=== PATIENT | male | born 1950 | race Caucasian/White ===

== ENCOUNTER 2017-07-11 11:31 | Observation (INO) | payer MEDICARE, OTHER ==
[~2017-07-11] VITALS: Ht 188 cm; Wt 102.3 kg
[~2017-07-11 11:31] MED LIST: ASPIRIN325 MG PO; ASPIRIN81 MG PO; COZAAR100 MG PO; CYMBALTA60 MG PO; MELOXICAM7.5 MG PO; METOPROLOL TART25 MG PO; NITROGLYCERIN0.4 MG SL; PLAVIX75 MG PO; POTASSIUM99 M1 PO; SIMVASTATIN40 MG PO; occuvite
[2017-07-11] MEDS ORDERED: ASPIRIN 325 MG TAB EC PO STA (11:45)
[2017-07-11 12:03] LABS: BASOPHILS % 0.2 % (0.0-1.0); HEMATOCRIT 47.2 % (38.2-49.6); LYMPHOCYTES # (AUTO) 2.3 (1.0-3.2); LYMPHOCYTES % 13.3 % (18.0-39.1); MEAN CORPUSCULAR HEMOGLOBIN 32.2 pg (28-32); MEAN CORPUSCULAR HGB CONC 33.9 g/dL (31-35); MONOCYTES # (AUTO) 1.2 (0.2-0.8); MONOCYTES % 6.8 % (4.4-11.3); NEUTROPHILS # (AUTO) 13.6 (2.1-6.9); NEUTROPHILS % 78.9 % (38.7-80.0); PLATELET COUNT 256 x10e3/uL (140-360); RED BLOOD COUNT 4.97 x10e6/uL (4.3-5.7); RED CELL DISTRIBUTION WIDTH 12.3 % (11.7-14.4)
[2017-07-11 12:08] LABS: INR 1.05; PROTHROMBIN TIME 14.2 seconds (11.9-14.5)
[2017-07-11 12:09] LABS: PARTIAL THROMBOPLASTIN TIME 25.5 seconds (23.8-35.5)
[2017-07-11 12:16] LABS: ALANINE AMINOTRANSFERASE 23 IU/L (0-55); ALBUMIN 3.8 g/dL (3.5-5.0); ALBUMIN/GLOBULIN RATIO 1.1 (0.8-2.0); ALKALINE PHOSPHATASE 79 IU/L (40-150); BLOOD UREA NITROGEN 23 mg/dL (7-26); BUN/CREATININE RATIO 23 (6-25); CALCIUM 8.7 mg/dL (8.4-10.2); CARBON DIOXIDE 26 mmol/L (22-29); CHLORIDE 106 mmol/L (98-107); CREATINE KINASE 38 IU/L (30-200); CREATININE, SERUM 1.02 mg/dL (0.72-1.25); EST GLOMERULAR FILTRATION RATE > 60 ML/MIN (60-); GLUCOSE 81 mg/dL (74-118); SODIUM 139 mmol/L (136-145)
--- NOTE | 2017-07-11 13:26 | Diagnostic Imaging Report ---
PROCEDURE: A single AP view of the chest. COMPARISON: 05/03/16 INDICATIONS: CHEST PAIN FINDINGS: Lines/tubes: None. Lungs: The lungs are well inflated and clear. There is no evidence of pneumonia or pulmonary edema. Pleura: There is no pleural effusion or pneumothorax. Heart and mediastinum: The heart and the mediastinum are unremarkable. Bones: No acute bony abnormality. IMPRESSION: 1. No acute cardiopulmonary disease. Dictated by: Tao Dillard M.D. on 07/11/2017 at 13:35 Electronically approved by: Tao Dillard M.D. on 07/11/2017 at 13:35
[2017-07-11] MEDS ORDERED: ONDANSETRON HCL INJ 2 MG/ML VIAL IV PRN (14:30)
[2017-07-11] MEDS ORDERED: MORPHINE SULFATE 2 MG/ML SYR IV PRN (14:30)
[2017-07-11] MEDS: ENOXAPARIN SODIUM INJ 100 MG/ML SYR SC SCH ×2 (15:08→21:44)
[2017-07-11 15:33] VITALS: BP 184/83
[2017-07-11] MEDS ORDERED: ASPIRIN81 MG (15:39)
[2017-07-11] MEDS ORDERED: FUROSEMIDE40 MG PO (15:39)
[2017-07-11] MEDS ORDERED: SIMVASTATIN20 MG PO (15:39)
[2017-07-11 15:49] VITALS: BP 184/83
[2017-07-11] MEDS: LOSARTAN POTASSIUM 100 MG TAB PO SCH (18:13)
[2017-07-11] MEDS ORDERED: ASPIRIN 81 MG CHEW TAB PO ONE (18:15)
[2017-07-11 20:00] VITALS: BP 147/72
[2017-07-11 20:03] VITALS: BP 147/72
--- NOTE | 2017-07-11 20:03 | Consultation ---
DATE OF CONSULTATION: July 11, 2017 CLINICAL HISTORY: This is a 67-year-old white man known to me from previous evaluations, referred by Dr. Nick Degroot for evaluation of recurrent chest pains. In 2009 this patient had a stent implanted in the proximal left anterior descending coronary artery by Dr. Jorge Dominguez. He also has history of nonsustained ventricular tachycardia with negative electrophysiology testing in 2010. There is history of PAT managed conservatively. His left ventricular ejection fraction most recently was in the normal range around 50% to 55%. In April 2016, he had chest pains and underwent cardiac catheterization with only residual 40% to 50% stenosis. His LAD stent appears to be patent. He says he is physically active on his job, walking approximately 3 miles per day, but often not at a persistent prolonged pace. He denies any chest pains at work. 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 He took 2 nitroglycerin and pain eventually resolved in approximately 5 to 10 minutes. He was a little bit alarmed by the pain. The pain rated 6 on a scale of 10. Following the sharp pain, he had some dull chest pains. Decided to come to the emergency room where EKG failed to show acute changes. Cardiology consultation requested. PAST MEDICAL HISTORY: Remarkable for a period of low ejection fraction, which after diuresis appears to have improved. His ejection fraction one time was in the range of 35% to 40%. Past medical history is also remarkable for left upper lobe pulmonary nodule, hypertension, depression, osteoporosis, and hyperlipidemia. PAST SURGICAL HISTORY: Left knee surgery, kidney stone lithotripsy, left leg vein stripping, left knee replacement. FAMILY HISTORY: Father had myocardial infarction and at age 58. Mother had congestive heart failure and myocardial infarction, and is alive. PERSONAL/SOCIAL HISTORY: Denies smoking or drinking. ALLERGIES: NO KNOWN DRUG ALLERGIES. REVIEW OF SYSTEMS: Negative. PHYSICAL EXAMINATION: GENERAL: He is obese, alert, coherent, appears to be comfortable. CARDIAC: Jugular veins are not distended. S1 S2 were regular. There is no appreciable murmur. LUNGS: Are clear. ABDOMEN: Soft and bowel sounds are present. EXTREMITIES: Show no cyanosis, clubbing or edema. IMPRESSION 1. Atypical chest pains rated 6 on a scale of 10, lasted 5 to 10 minutes requiring 2 nitroglycerin. Initially described as sharp but following resolution of pain there was still a dull discomfort in the chest. EKG showed no acute changes. Consider progression of coronary artery disease. 2. History of coronary stenting in the left anterior descending coronary artery 2009 with subsequent cardiac catheterization 2015 showing 40% to 50% stenosis. 3. Hypertension. 4. Hyperlipidemia. 5. History of nonsustained ventricular tachycardia with negative electrophysiology testing in 2010. 6. History of paroxysmal atrial tachycardia. 7. Depression. 8. Osteoarthritis. 9. History of cardiomyopathy. Ejection fraction of 35% to 40%, but most recent echo evaluation put the ejection fraction in the range of 50% to 55%. The difference may have been due to usage of diuretics. RECOMMENDATION: Consider nuclear stress test. Thank you very much. Job#: [id number] GH cc:NICK DEGROOT MD
[2017-07-11 21:31] LABS: CREATINE KINASE MB 0.7 ng/mL (0.00-5.00)
[2017-07-11] MEDS: SIMVASTATIN 20 MG TAB PO SCH (21:44)
[2017-07-12] VITALS (7 sets, daily range): BP systolic 128–165; BP diastolic 67–89
[2017-07-12 06:43] LABS: BASOPHILS % 0.1 % (0.0-1.0); EOSINOPHILS % 0.1 % (0.0-6.0); HEMOGLOBIN 15.1 g/dL (14.0-18.0); LYMPHOCYTES # (AUTO) 3.3 (1.0-3.2); LYMPHOCYTES % 23.1 % (18.0-39.1); MEAN CORPUSCULAR HEMOGLOBIN 31.9 pg (28-32); MEAN CORPUSCULAR HGB CONC 33.6 g/dL (31-35); MEAN CORPUSCULAR VOLUME 94.9 fL (81-99); MONOCYTES # (AUTO) 1.2 (0.2-0.8); MONOCYTES % 8.3 % (4.4-11.3); NEUTROPHILS # (AUTO) 9.8 (2.1-6.9); NEUTROPHILS % 67.8 % (38.7-80.0); PLATELET COUNT 218 x10e3/uL (140-360); RED BLOOD COUNT 4.74 x10e6/uL (4.3-5.7); RED CELL DISTRIBUTION WIDTH 12.2 % (11.7-14.4)
[2017-07-12 07:09] LABS: CREATINE KINASE MB 0.8 ng/mL (0.00-5.00)
[2017-07-12] MEDS ORDERED: REGADENOSON 0.4 MG/5 ML SYR IV ONE (08:14)
[2017-07-12] MEDS ORDERED: FUROSEMIDE 40 MG TAB PO SCH (09:00)
[2017-07-12] MEDS ORDERED: ASPIRIN 325 MG TAB EC PO SCH (09:00)
[2017-07-12] MEDS ORDERED: ASPIRIN 81 MG CHEW TAB PO SCH (09:00)
[2017-07-12] MEDS: ENOXAPARIN SODIUM INJ 100 MG/ML SYR SC SCH (10:40)
[2017-07-12] MEDS: LOSARTAN POTASSIUM 100 MG TAB PO SCH (10:50)
[2017-07-12] MEDS: ASPIRIN 325 MG TAB PO SCH (10:50)
[2017-07-12] MEDS: FUROSEMIDE 20 MG TAB PO SCH (10:50)
[2017-07-12] MEDS ORDERED: COZAAR100 MG PO (16:48)
[2017-07-12] MEDS ORDERED: PROTONIX40 MG/ML PO (16:50)
[2017-07-12 18:05] LABS: CLARITY,URINE SL CLOUDY (CLEAR); COLOR,URINE YELLOW (YELLOW)
[2017-07-12 18:06] LABS: BILIRUBIN,URINE NEGATIVE (NEGATIVE); KETONES,URINE NEGATIVE (NEGATIVE); LEUKOCYTE ESTERASE ,URINE NEGATIVE (NEGATIVE); NITRITE,URINE NEGATIVE (NEGATIVE); PROTEIN,URINE DIPSTICK NEGATIVE (NEGATIVE); URINE UROBILINOGEN 0.2 mg/dL (0.2 - 1)
[2017-07-12] MEDS: SIMVASTATIN 20 MG TAB PO SCH (20:32)
[2017-07-13] VITALS (7 sets, daily range): BP systolic 116–144; BP diastolic 63–74
--- NOTE | 2017-07-13 08:53 | Cardiology Report ---
DATE OF STUDY: NUCLEAR STRESS TEST AGE: 67 Following exercise perfusion, images showed diminished count involving a large area of the inferior septum. The rest images showed essentially the same. CONCLUSIONS 1. Large mixed defect involving the inferior septum consistent with myocardial scar. 2. The ejection fraction with exercise is 45%. 3. No significant ST-segment depression. 4. No chest pains reported with exercise. 5. Normal bronchial response. 6. No significant arrhythmias with exercise. Job#: [id number] RI cc:MELANI DEGROOT MD
[2017-07-13] MEDS: ASPIRIN 325 MG TAB PO SCH (09:30)
[2017-07-13] MEDS: PANTOPRAZOLE SOD 40 MG TABEC PO SCH (09:30)
[2017-07-13] MEDS: SODIUM CHLORIDE 0.9% 1000ML 1,000 ML IV SCH (09:30)
[2017-07-13] MEDS: LOSARTAN POTASSIUM 100 MG TAB PO SCH (09:31)
[2017-07-13] MEDS: FUROSEMIDE 20 MG TAB PO SCH (09:31)
[2017-07-13] MEDS: SIMVASTATIN 20 MG TAB PO SCH (21:34)
[2017-07-14] VITALS (13 sets, daily range): BP systolic 124–141; BP diastolic 60–75
[2017-07-14] MEDS: SODIUM CHLORIDE 0.9% 1000ML 1,000 ML IV SCH (04:25)
[2017-07-14 06:50] LABS: BASOPHILS # (AUTO) 0.1 (0.0-0.1); BASOPHILS % 0.3 % (0.0-1.0); EOSINOPHILS # (AUTO) 0.2 (0.0-0.4); EOSINOPHILS % 1.3 % (0.0-6.0); HEMOGLOBIN 16.7 g/dL (14.0-18.0); LYMPHOCYTES # (AUTO) 4.6 (1.0-3.2); LYMPHOCYTES % 27.3 % (18.0-39.1); MEAN CORPUSCULAR HEMOGLOBIN 32.1 pg (28-32); MEAN CORPUSCULAR HGB CONC 33.4 g/dL (31-35); MONOCYTES # (AUTO) 1.4 (0.2-0.8); MONOCYTES % 8.6 % (4.4-11.3); NEUTROPHILS # (AUTO) 10.3 (2.1-6.9); NEUTROPHILS % 61.7 % (38.7-80.0); PLATELET COUNT 226 x10e3/uL (140-360); RED BLOOD COUNT 5.21 x10e6/uL (4.3-5.7); RED CELL DISTRIBUTION WIDTH 12.4 % (11.7-14.4)
[2017-07-14 07:11] LABS: BLOOD UREA NITROGEN 21 mg/dL (7-26); BUN/CREATININE RATIO 23 (6-25); CALCIUM 8.6 mg/dL (8.4-10.2); CARBON DIOXIDE 25 mmol/L (22-29); CHLORIDE 106 mmol/L (98-107); EST GLOMERULAR FILTRATION RATE > 60 ML/MIN (60-); GLUCOSE 94 mg/dL (74-118); SODIUM 140 mmol/L (136-145)
[2017-07-14] MEDS ORDERED: LIDOCAINE HCL 2% LOCAL 20 ML VIAL ONE (07:28)
[2017-07-14] MEDS ORDERED: HEPARIN SOD/SOD CHLORIDE 2,000 ML ONE (07:28)
[2017-07-14] MEDS ORDERED: IOPAMIDOL 370 MG/ML 200 ML INFUS..BTL INJ ONE (07:28)
[2017-07-14] MEDS: PANTOPRAZOLE SOD 40 MG TABEC PO SCH (07:30)
[2017-07-14] MEDS ORDERED: MIDAZOLAM HCL 2 MG/2 ML VIAL ONE (07:43)
[2017-07-14] MEDS ORDERED: VERAPAMIL HCL 2.5 MG/ML 2 ML VIAL ONE (07:43)
[2017-07-14] MEDS ORDERED: HEPARIN SOD (PORCINE) 1000 UNIT/ML 30ML ONE (07:43)
[2017-07-14] MEDS ORDERED: FENTANYL CITRATE/PF 100MCG/2 ML INJ ONE (07:43)
[2017-07-14] MEDS ORDERED: NITROGLYCERIN/D5W 200 MCG/ML 250 ML ONE (07:44)
[2017-07-14] MEDS ORDERED: SODIUM CHLORIDE 0.9% 1000ML 1,000 ML ONE (07:44)
--- NOTE | 2017-07-14 09:44 | Operative Report ---
DATE OF PROCEDURE: PROCEDURE: Cardiac catheterization. CLINICAL HISTORY: This is a 67-year-old white man status post LAD stent with some restenosis admitted because of chest pain. Nuclear stress test indicated large inferior defect, which appears to be predominately fixed. This is not consistent with previous angiography. After discussing the various diagnostic and treatment alternatives, we elected to proceed with cardiac catheterization, possible angioplasty and stenting. Risks, benefits and alternatives explained and understood. PROCEDURE: He was brought to the cardiac catheterization laboratory in a fasting and sedated state. Using aseptic technique, Betadine skin preparation, lidocaine local anesthesia, the right femoral artery was entered using a modified Seldinger technique. A 4-Belgian sheath was inserted inside this vessel. Diagnostic coronary angiography was carried out using a 4-Belgian and #4 Papi catheters. The LAD stent remains patent. Distal to the LAD, there is an approximately 40% stenosis, which is unchanged. The right coronary artery is dominant without significant disease. All the equipment was then withdrawn. Hemostasis was achieved by direct pressure. The patient was taken to recovery. CONCLUSIONS 1. Right dominant artery without any significant coronary artery disease. 2. The left anterior descending had a patent proximal left anterior descending stent with mild stenosis distal to the stent approximately 40% and not requiring any intervention. 3. The circumflex is nondominant. Does not require any intervention. 4. No significant disease in the left main. 5. Left ventriculogram was not carried out. Job#: [id number] RI cc:MELANI DEGROOT MD
== END 2017-07-14 15:38 | disposition home or self-care (01) ==
LOC: ER 11:31 → ERHOLD 14:35 → IMCU 15:04
PROVIDERS: ADMIT Internal Medicine; ATTEND Internal Medicine
DX: R07.89 Other chest pain (principal); I25.10 Atherosclerotic heart disease of native coronary artery without angina pectoris; I10 Essential (primary) hypertension; Z95.5 Presence of coronary angioplasty implant and graft; E78.5 Hyperlipidemia, unspecified; I49.3 Ventricular premature depolarization
CPT/HCPCS: 36415 ×3; 71045; 78452; 80048; 80053; 80061; 81001; 82550 ×2; 82553 ×2; 84484 ×2; 85025 ×3; 85610; 85730; 87086; 93005; 93017; 93458; 99284; A9502; C1766; G0378 ×4; J1644; J1650 ×2; J2001; J2250; J7030 ×2; Q9967; 36140; 77002